=== PATIENT | male | born 1970 | race Caucasian/White ===

== ENCOUNTER 2017-06-11 23:46 | Emergency (ER) | payer OTHER, BC ==
[2017-06-12 00:36] LABS: KETONE, URINE AUTO RFX 1+ mg/dL (NEGATIVE); LEUKOCYTE ESTERASE UR AUTO RFX NEGATIVE (NEGATIVE); MUCUS, URINE RFX SMALL (NEGATIVE); NITRITE, URINE AUTO RFX NEGATIVE (NEGATIVE); RBC, URINE AUTO RFX 2 /HPF (0-3); SPECIFIC GRAVITY UR AUTO RFX 1.026 (1.002-1.035); SQUAM EPITHELIAL CELL UR AURFX 0 /HPF (0-6); WBC, URINE AUTO RFX 1 /HPF (0-3)
[2017-06-12 02:02] LABS: BASO % 0.1 % (0.0-1.0); HEMATOCRIT 43.6 % (42.0-52.0); HEMOGLOBIN 15.3 g/dl (14.0-18.0); IMMATURE GRANULOCYTE % 0.2 % (0-0); LYMPH # 1.4 10^3/uL (1.5-4.5); LYMPH % 12.9 % (24.0-44.0); MEAN CORPUSCULAR HEMOGLOBIN 29.5 pg (27.0-33.0); MEAN CORPUSCULAR HGB CONC 35.1 g/dl (32.0-36.5); MONO # 1.1 10^3/uL (0.0-0.8); MONO % 10.5 % (0.0-5.0); NEUTROPHILS % 76.3 % (36.0-66.0); PLATELET COUNT, AUTOMATED 237 10^3/uL (150-450); RED BLOOD COUNT 5.19 10^6/uL (4.30-6.10); RED CELL DISTRIBUTION WIDTH 12.1 % (11.5-14.5); WHITE BLOOD COUNT 10.4 10^3/uL (4.0-10.0)
[2017-06-12] MEDS: NS 1,000 ML IV (02:05)
[2017-06-12] MEDS: ONDANSETRON 4MG/2ML VIAL (J2405) IV ×2 (02:05→02:08)
[2017-06-12] MEDS ORDERED: ISOVUE-370 76% 100ML VIAL (Q9967) As Ordered (02:06)
[2017-06-12] MEDS: MORPHINE 4 MG/ML 1ML SYRINGE IV (02:22)
[2017-06-12 02:32] LABS: ALBUMIN 3.9 GM/DL (3.2-5.2); ALBUMIN/GLOBULIN RATIO 0.93 (1.00-1.93); ALKALINE PHOSPHATASE 57 U/L (45-117); ALT/SGPT 62 U/L (12-78); ANION GAP 9 MEQ/L (8-16); AST/SGOT 34 U/L (7-37); BILIRUBIN,DIRECT 0.1 MG/DL (0.0-0.2); BILIRUBIN,TOTAL 0.6 MG/DL (0.2-1.0); BLOOD UREA NITROGEN 16 MG/DL (7-18); CARBON DIOXIDE LEVEL 26 MEQ/L (21-32); CHLORIDE LEVEL 103 MEQ/L (98-107); CREATININE FOR GFR 1.12 MG/DL (0.70-1.30); GLOMERULAR FILTRATION RATE > 60.0 (>60); GLUCOSE, FASTING 116 MG/DL (70-105); LIPASE 243 U/L (73-393); POTASSIUM SERUM 3.4 MEQ/L (3.5-5.1); SODIUM LEVEL 138 MEQ/L (136-145); TOTAL PROTEIN 8.1 GM/DL (6.4-8.2)
[2017-06-12] MEDS: KETOROLAC 30 MG/ML VIAL (J1885) IV (04:21)
== END 2017-06-12 04:33 | disposition home or self-care (01) ==
LOC: M ED 23:46
DX: K52.9 Noninfective gastroenteritis and colitis, unspecified (principal); E78.00 Pure hypercholesterolemia, unspecified; K21.9 Gastro-esophageal reflux disease without esophagitis
CPT/HCPCS: J2405

== ENCOUNTER → 2017-07-01 | Outpatient (CLI) | payer OTHER ==
[2017-07-01 18:12] LABS: ALBUMIN 3.9 GM/DL (3.2-5.2); ALBUMIN/GLOBULIN RATIO 1.05 (1.00-1.93); ALKALINE PHOSPHATASE 56 U/L (45-117); ALT/SGPT 56 U/L (12-78); ANION GAP 8 MEQ/L (8-16); AST/SGOT 24 U/L (7-37); BILIRUBIN,TOTAL 0.4 MG/DL (0.2-1.0); BLOOD UREA NITROGEN 12 MG/DL (7-18); CALCIUM LEVEL 8.9 MG/DL (8.5-10.1); CARBON DIOXIDE LEVEL 30 MEQ/L (21-32); CHLORIDE LEVEL 102 MEQ/L (98-107); CHOLESTEROL LEVEL 140 MG/DL (<200); CHOLESTEROL RISK RATIO 2.745 (<5); CREATININE FOR GFR 0.91 MG/DL (0.70-1.30); GLOMERULAR FILTRATION RATE > 60.0 (>60); GLUCOSE, FASTING 83 MG/DL (70-100); HDL CHOLESTEROL 51 MG/DL (>40); LDL CHOLESTEROL 68.2 MG/DL (<100); NON-HDL-C 89 MG/DL; SODIUM LEVEL 140 MEQ/L (136-145); TOTAL PROTEIN 7.6 GM/DL (6.4-8.2); TRIGLYCERIDES LEVEL 104 MG/DL (<150)
[2017-07-01 18:22] LABS: BASO % 0.5 % (0.0-1.0); EOS # 0.1 10^3/uL (0.0-0.50); EOS % 0.8 % (0.0-3.0); HEMATOCRIT 43.6 % (42.0-52.0); HEMOGLOBIN 14.6 g/dl (14.0-18.0); IMMATURE GRANULOCYTE % 0.3 % (0-0); LYMPH # 3.1 10^3/uL (1.5-4.5); LYMPH % 35.5 % (24.0-44.0); MEAN CORPUSCULAR HEMOGLOBIN 28.8 pg (27.0-33.0); MEAN CORPUSCULAR HGB CONC 33.5 g/dl (32.0-36.5); MONO # 0.8 10^3/uL (0.0-0.8); MONO % 9.3 % (0.0-5.0); NEUTROPHILS # 4.7 10^3/uL (1.8-7.7); NEUTROPHILS % 53.6 % (36.0-66.0); PLATELET COUNT, AUTOMATED 279 10^3/uL (150-450); RED BLOOD COUNT 5.07 10^6/uL (4.30-6.10); RED CELL DISTRIBUTION WIDTH 12.3 % (11.5-14.5); WHITE BLOOD COUNT 8.7 10^3/uL (4.0-10.0)
== END ==
LOC: M LAB 16:13
DX: E78.2 Mixed hyperlipidemia (principal); N40.0 Benign prostatic hyperplasia without lower urinary tract symptoms; Z12.5 Encounter for screening for malignant neoplasm of prostate
CPT/HCPCS: 80053

== ENCOUNTER 2018-07-27 15:10 | Emergency (ER) | payer OTHER ==
[~2018-07-27] VITALS: Ht 167.6 cm; Wt 104.5 kg
[~2018-07-27 15:10] MED LIST: ALLE180T33 PO; FISH100049 PO; PAXI30TA11 PO; PREV1CAP PO; RANI1TAB38 PO; SIMV40TA2 PO; VITACAP35 PO; VITATAB22 PO; ZOFR4TAB14 PO
[2018-07-27] MEDS ORDERED: LANS30CA (15:19)
[2018-07-27 15:58] LABS: BASO % 0.5 % (0.0-1.0); EOS # 0.1 10^3/uL (0.0-0.50); EOS % 0.7 % (0.0-3.0); HEMATOCRIT 44.3 % (42.0-52.0); HEMOGLOBIN 15.3 g/dl (13.5-17.5); LYMPH # 2.4 10^3/uL (1.5-4.5); LYMPH % 27.7 % (24.0-44.0); MEAN CORPUSCULAR HEMOGLOBIN 29.8 pg (27.0-33.0); MEAN CORPUSCULAR HGB CONC 34.5 g/dl (32.0-36.5); MEAN CORPUSCULAR VOLUME 86.4 fl (80.0-96.0); MONO # 0.8 10^3/uL (0.0-0.8); MONO % 9.4 % (0.0-5.0); NEUTROPHILS # 5.2 10^3/uL (1.8-7.7); NEUTROPHILS % 61.3 % (36.0-66.0); PLATELET COUNT, AUTOMATED 229 10^3/uL (150-450); RED BLOOD COUNT 5.13 10^6/uL (4.30-6.10); WHITE BLOOD COUNT 8.5 10^3/uL (4.0-10.0)
[2018-07-27 16:17] LABS: ALBUMIN 4.1 GM/DL (3.2-5.2); ALT/SGPT 85 U/L (12-78); BILIRUBIN,TOTAL 0.3 MG/DL (0.2-1.0); BLOOD UREA NITROGEN 13 MG/DL (7-18); CALCIUM LEVEL 8.7 MG/DL (8.5-10.1); CARBON DIOXIDE LEVEL 27 MEQ/L (21-32); CHLORIDE LEVEL 105 MEQ/L (98-107); CREATININE FOR GFR 0.83 MG/DL (0.70-1.30); GLOMERULAR FILTRATION RATE > 60.0 (>60); GLUCOSE, FASTING 89 MG/DL (70-100); POTASSIUM SERUM 3.7 MEQ/L (3.5-5.1); SODIUM LEVEL 141 MEQ/L (136-145)
[2018-07-27 16:25] LABS: HEPATITIS B SURFACE ANTIBODY POSITIVE (POSITIVE)
[2018-07-27 16:36] LABS: HEPATITIS B SURFACE ANTIGEN NEGATIVE (NEGATIVE)
[2018-07-27 17:04] LABS: HEPATITIS C VIRUS ABY INDEX 0.1 INDEX (<0.8)
[2018-07-27] MEDS ORDERED: EXPOSURE KIT-ADULT 7 DAY SUPPLY PO ONE (18:00)
[2018-07-27] MEDS ORDERED: ONDANSETRON 4 MG ORAL DISINTEGRATING TAB (Q0162 PER 1MG) PO ONE (18:00)
[2018-07-27] MEDS ORDERED: ONDA4TAB6 PO (18:00)
[2018-07-27] MEDS ORDERED: ADACEL/BOOSTRIX VACCINE (DIPHTH/PERTUSS/ACELL/TETANUS)0.5ML SYR (90715) IM ONE (18:00)
[2018-07-27 18:10] VITALS: BP 168/90
== END 2018-07-27 18:19 | disposition home or self-care (01) ==
LOC: M ED 15:10
DX: S61.231A Puncture wound without foreign body of left index finger without damage to nail, initial encounter (principal); W46.1XXA Contact with contaminated hypodermic needle, initial encounter; Y92.234 Operating room of hospital as the place of occurrence of the external cause; Y99.0 Civilian activity done for income or pay; K21.9 Gastro-esophageal reflux disease without esophagitis; E78.00 Pure hypercholesterolemia, unspecified; F32.9 Major depressive disorder, single episode, unspecified; Z79.899 Other long term (current) drug therapy
CPT/HCPCS: 36415; 80053; 85025; 86706; 86803; 87340; 87389; 90471; 90715; 99283; Q0162

== ENCOUNTER → 2019-04-19 | Outpatient (CLI) | payer BC, OTHER ==
[~2019-04-19] MED LIST changes: +LANS30CA; +ONDA4TAB6 PO; -SIMV40TA2 PO; +SIMV40TA20 PO
[2019-04-19 10:17] LABS: BASO % 0.4 % (0.0-1.0); EOS # 0.1 10^3/uL (0.0-0.5); EOS % 1.2 % (0.0-3.0); HEMOGLOBIN 15.8 g/dl (13.5-17.5); LYMPH # 2.8 10^3/uL (1.5-5.0); LYMPH % 37.2 % (24.0-44.0); MEAN CORPUSCULAR HEMOGLOBIN 29.3 pg (27.0-33.0); MEAN CORPUSCULAR HGB CONC 33.6 g/dl (32.0-36.5); MEAN CORPUSCULAR VOLUME 87.2 fl (80.0-96.0); MONO # 0.7 10^3/uL (0.0-0.8); MONO % 9.1 % (0.0-5.0); NEUTROPHILS # 3.9 10^3/uL (1.5-8.5); NEUTROPHILS % 51.8 % (36.0-66.0); PLATELET COUNT, AUTOMATED 247 10^3/uL (150-450); RED BLOOD COUNT 5.39 10^6/uL (4.30-6.10); WHITE BLOOD COUNT 7.6 10^3/uL (4.0-10.0)
[2019-04-19 10:53] LABS: ALBUMIN 3.8 GM/DL (3.2-5.2); ALT/SGPT 64 U/L (12-78); BILIRUBIN,TOTAL 0.3 MG/DL (0.2-1.0); BLOOD UREA NITROGEN 18 MG/DL (7-18); CALCIUM LEVEL 8.9 MG/DL (8.5-10.1); CARBON DIOXIDE LEVEL 28 MEQ/L (21-32); CHLORIDE LEVEL 107 MEQ/L (98-107); CHOLESTEROL LEVEL 140 MG/DL (<200); CREATININE FOR GFR 0.91 MG/DL (0.70-1.30); FREE T4 0.92 NG/DL (0.76-1.46); GLOMERULAR FILTRATION RATE > 60.0 (>60); GLUCOSE, FASTING 109 MG/DL (70-100); HDL CHOLESTEROL 40 MG/DL (>40); LDL CHOLESTEROL 87 MG/DL (<100); NON-HDL-C 100 MG/DL; POTASSIUM SERUM 4.2 MEQ/L (3.5-5.1); PROSTATIC SPECIFIC AG MONITOR 0.39 NG/ML (< 4.00); SODIUM LEVEL 141 MEQ/L (136-145); TOTAL PROTEIN 7.6 GM/DL (6.4-8.2); TRIGLYCERIDES LEVEL 67 MG/DL (<150)
== END ==
LOC: M LAB 09:51
PROVIDERS: ATTEND Physician Assistant
DX: E78.2 Mixed hyperlipidemia (principal); K21.0 Gastro-esophageal reflux disease with esophagitis; R53.83 Other fatigue; R35.0 Frequency of micturition

== ENCOUNTER → 2020-12-27 | Outpatient (CLI) | payer OTHER ==
[2020-12-27 10:34] LABS: BASO % 0.4 % (0.0-1.0); EOS # 0.1 10^3/uL (0.0-0.5); EOS % 1.3 % (0.0-3.0); HEMATOCRIT 48.1 % (42.0-52.0); HEMOGLOBIN 15.8 g/dl (13.5-17.5); LYMPH # 2.5 10^3/uL (1.5-5.0); LYMPH % 35.2 % (24.0-44.0); MEAN CORPUSCULAR HEMOGLOBIN 28.9 pg (27.0-33.0); MEAN CORPUSCULAR HGB CONC 32.8 g/dl (32.0-36.5); MEAN CORPUSCULAR VOLUME 88.1 fl (80.0-96.0); MONO # 0.7 10^3/uL (0.0-0.8); MONO % 9.1 % (2.0-8.0); NEUTROPHILS # 3.9 10^3/uL (1.5-8.5); NEUTROPHILS % 53.9 % (36.0-66.0); PLATELET COUNT, AUTOMATED 255 10^3/uL (150-450); RED BLOOD COUNT 5.46 10^6/uL (4.30-6.10); WHITE BLOOD COUNT 7.2 10^3/uL (4.0-10.0)
[2020-12-27 11:06] LABS: ALBUMIN 4.2 GM/DL (3.2-5.2); ALT/SGPT 52 U/L (12-78); BILIRUBIN,TOTAL 0.4 MG/DL (0.2-1.0); BLOOD UREA NITROGEN 12 MG/DL (7-18); CALCIUM LEVEL 9.1 MG/DL (8.5-10.1); CARBON DIOXIDE LEVEL 32 MEQ/L (21-32); CHLORIDE LEVEL 104 MEQ/L (98-107); CHOLESTEROL LEVEL 164 MG/DL (<200); CHOLESTEROL RISK RATIO 3.416 (<5); CREATININE FOR GFR 0.83 MG/DL (0.70-1.30); GLOMERULAR FILTRATION RATE > 60.0 (>60); GLUCOSE, FASTING 98 MG/DL (70-100); HDL CHOLESTEROL 48 MG/DL (>40); LDL CHOLESTEROL 92 MG/DL (<100); NON-HDL-C 116 MG/DL; POTASSIUM SERUM 4.3 MEQ/L (3.5-5.1); PROSTATIC SPECIFIC AG MONITOR 0.41 NG/ML (< 4.00); SODIUM LEVEL 140 MEQ/L (136-145); TOTAL PROTEIN 7.5 GM/DL (6.4-8.2); TRIGLYCERIDES LEVEL 122 MG/DL (<150)
[2020-12-27 11:32] LABS: HEMOGLOBIN A1c 5.3 %
== END ==
LOC: M LAB 08:51
PROVIDERS: ATTEND Physician Assistant
DX: Z00.00 Encounter for general adult medical examination without abnormal findings (principal); E78.2 Mixed hyperlipidemia; K21.9 Gastro-esophageal reflux disease without esophagitis; Z12.5 Encounter for screening for malignant neoplasm of prostate; R73.01 Impaired fasting glucose

== ENCOUNTER → 2021-01-30 | Outpatient (CLI) | payer OTHER ==
--- NOTE | 2021-01-30 15:21 | REP ---
INDICATION: COUGH. COMPARISON: None. FINDINGS: The superior mediastinal structures are midline. The cardiac silhouette is unremarkable in size, shape, and position. The diaphragmatic surfaces of the lungs are regular, and the costophrenic angles are clear. The pulmonary miles are clear. The imaged osseous structures are intact. IMPRESSION: There is no acute cardiopulmonary disease. <Electronically signed by Ibrahima Kapoor > 01/30/21 [id number]
== END ==
LOC: M RAD 13:06
PROVIDERS: ATTEND Physician Assistant
DX: R05 Cough (principal)

== ENCOUNTER → 2021-04-16 | Outpatient (REF) | LOC: M EMP 15:20 | PROVIDERS: ATTEND Family Medicine | DX: Z20.822 Contact with and (suspected) exposure to COVID-19 (principal) ==

== ENCOUNTER → 2021-04-23 | Outpatient (REF) | LOC: M EMP 12:57 | PROVIDERS: ATTEND Family Medicine | DX: Z20.822 Contact with and (suspected) exposure to COVID-19 (principal) ==

== ENCOUNTER → 2022-01-07 | Outpatient (REF) | LOC: M EMP 10:14 | PROVIDERS: ATTEND Family Medicine | DX: Z20.822 Contact with and (suspected) exposure to COVID-19 (principal) ==

== ENCOUNTER 2022-09-11 06:53 | Day surgery (SDC) | payer OTHER ==
[~2022-09-11] VITALS: Ht 167.6 cm; Wt 113.4 kg
[~2022-09-11 06:53] MED LIST changes: +D 1010004 PO; +FAMO20TA5 PO; +LANS30CA93 PO; +NS 1,000 ML IV ONE; +PARO20TA3 PO; -PAXI30TA11 PO; +PAXI30TA12 PO; +VITA500C24 PO
[2022-09-11] MEDS ORDERED: propofoL 200 MG/20 ML VIAL As Ordered ONE ×2 (07:43→08:01)
[2022-09-11] MEDS ORDERED: fentaNYL 100 MCG/2 ML INJECTION As Ordered ONE (07:43)
[2022-09-11] MEDS ORDERED: LIDOCAINE 2% 100MG/5ML SDV (FOR ANES.) As Ordered ONE (07:43)
[2022-09-11 08:30] VITALS: BP 145/81
== END 2022-09-11 08:35 | disposition home or self-care (01) ==
LOC: M OPP 06:53
PROVIDERS: ATTEND Internal Medicine Gastroenterology
DX: Z12.11 Encounter for screening for malignant neoplasm of colon (principal); Z86.010 Personal history of colon polyps; D12.6 Benign neoplasm of colon, unspecified; K64.0 First degree hemorrhoids; K29.70 Gastritis, unspecified, without bleeding; K20.90 Esophagitis, unspecified without bleeding; Z79.02 Long term (current) use of antithrombotics/antiplatelets; Z79.899 Other long term (current) drug therapy
CPT/HCPCS: 43239; 45380; 88305; J3010

== ENCOUNTER 2022-10-27 15:15 | Inpatient (IN) | payer OTHER ==
[~2022-10-27] VITALS: Ht 167.6 cm; Wt 113.6 kg
[~2022-10-27 15:15] MED LIST changes: -NS 1,000 ML IV ONE
[2022-10-27] MEDS ORDERED: MORPHINE 4 MG/ML 1ML VIAL IV PRN ×2 (15:30→21:50)
[2022-10-27] MEDS ORDERED: ONDANSETRON 4MG 2ML VIAL IV ONE (15:30)
[2022-10-27 15:50] LABS: BASO % 0.3 % (0.0-1.0); EOS % 0.4 % (0.0-3.0); HEMATOCRIT 46.2 % (42.0-52.0); HEMOGLOBIN 15.5 g/dl (13.5-17.5); LYMPH # 1.9 10^3/uL (1.5-5.0); LYMPH % 16.3 % (24.0-44.0); MEAN CORPUSCULAR HEMOGLOBIN 29.5 pg (27.0-33.0); MEAN CORPUSCULAR HGB CONC 33.5 g/dl (32.0-36.5); MEAN CORPUSCULAR VOLUME 87.8 fl (80.0-96.0); MONO # 0.7 10^3/uL (0.0-0.8); MONO % 6.5 % (2.0-8.0); NEUTROPHILS # 8.7 10^3/uL (1.5-8.5); NEUTROPHILS % 76.1 % (36.0-66.0); PLATELET COUNT, AUTOMATED 258 10^3/uL (150-450); RED BLOOD COUNT 5.26 10^6/uL (4.30-6.10); WHITE BLOOD COUNT 11.4 10^3/uL (4.0-10.0)
[2022-10-27 16:14] LABS: BLOOD UREA NITROGEN 15 MG/DL (9-23); CALCIUM LEVEL 8.8 MG/DL (8.5-10.1); CARBON DIOXIDE LEVEL 29 MMOL/L (20-31); CHLORIDE LEVEL 106 MMOL/L (98-107); CREATININE FOR GFR 0.82 MG/DL (0.70-1.30); GLOMERULAR FILTRATION RATE > 60.0 (>56); GLUCOSE, FASTING 111 MG/DL (60-100); POTASSIUM SERUM 4.3 MMOL/L (3.5-5.1); SODIUM LEVEL 142 MMOL/L (136-145)
[2022-10-27] MEDS ORDERED: fentaNYL 100 MCG/2 ML INJECTION As Ordered ONE (17:06)
[2022-10-27] MEDS ORDERED: propofoL 200 MG/20 ML VIAL As Ordered ONE (17:07)
[2022-10-27] MEDS ORDERED: LIDOCAINE 2% 100MG/5ML SDV (FOR ANES.) As Ordered ONE (17:07)
[2022-10-27] MEDS ORDERED: ONDANSETRON 4MG 2ML VIAL As Ordered ONE (17:13)
[2022-10-27] MEDS ORDERED: NORCO, ANEXSIA 5/325MG TABLET (HYDROcodone/ACETAMINOPHEN) PO PRN (17:40)
[2022-10-27] MEDS ORDERED: ACETAMINOPHEN 500 MG TAB PO PRN (17:40)
[2022-10-27] MEDS ORDERED: MORPHINE 2 MG/ML 1ML VIAL IV PRN (17:40)
[2022-10-27] MEDS ORDERED: VITMTA PO (18:04)
[2022-10-27] MEDS ORDERED: PARO20TA3 PO (18:04)
[2022-10-27] MEDS ORDERED: HOME MED LIST COMPLETE! XX SCH (18:05)
[2022-10-27] MEDS ORDERED: ONDANSETRON 4MG 2ML VIAL IV PRN (18:15)
[2022-10-27] MEDS ORDERED: fentaNYL 100 MCG/2 ML INJECTION IV PRN (18:15)
[2022-10-27] MEDS ORDERED: LR 1,000 ML IV SCH (18:15)
[2022-10-27] MEDS ORDERED: MIDAZOLAM INJ 2MG/2ML VIAL IV PRN (18:15)
[2022-10-27] MEDS ORDERED: ROPIvacaine 0.5% 30ML VIAL PN ONE (18:15)
[2022-10-27] MEDS ORDERED: MIDAZOLAM INJ 2MG/2ML VIAL As Ordered ONE (18:18)
[2022-10-27] MEDS ORDERED: ceFAZolin 2 GM/D5W 50 ML IV BAG As Ordered ONE (18:37)
[2022-10-27] MEDS ORDERED: HYDROmorphone HCL 2MG/ML 1ML VIAL As Ordered ONE (19:41)
[2022-10-27] MEDS ORDERED: GLYCOPYRROLATE INJ 0.2 MG/ML 2 ML VIAL As Ordered ONE (19:45)
[2022-10-27] MEDS ORDERED: FAMOTIDINE 20 MG TAB PO SCH (21:00)
[2022-10-27] MEDS ORDERED: ASCORBIC ACID 500 MG TAB PO SCH (21:00)
[2022-10-27] MEDS ORDERED: SIMVASTATIN 40 MG TAB PO SCH (21:00)
[2022-10-27] MEDS ORDERED: MULTIVITAMINS/MINERALS THERAP 1 TAB PO SCH (21:00)
[2022-10-27] MEDS ORDERED: PARoxetine 20MG TABLET PO SCH (21:00)
[2022-10-27] MEDS ORDERED: FEXOFENADINE 60MG TAB PO SCH (21:00)
[2022-10-27] MEDS ORDERED: BACITRACIN OINTMENT 30GM TUBE As Ordered ONE (21:14)
[2022-10-27] MEDS ORDERED: oxyCODONE 5MG TAB PO PRN (21:50)
[2022-10-27] MEDS ORDERED: HYDROmorphone 2 MG TAB PO PRN (21:50)
[2022-10-27 22:22] VITALS: BP 143/89
[2022-10-27] MEDS: KETOROLAC 30 MG/ML 1ML VIAL IV SCH (22:39)
[2022-10-27] MEDS ORDERED: PILL CUTTER 1 EACH XX PRN (22:45)
[2022-10-27 23:00] VITALS: BP 138/91
[2022-10-28] VITALS: BP 146/80
[2022-10-28] MEDS ORDERED: ONDANSETRON 4MG 2ML VIAL IV PRN
[2022-10-28 01:00] VITALS: BP 137/70
[2022-10-28 02:00] VITALS: BP 143/71
[2022-10-28 03:00] VITALS: BP 120/68
[2022-10-28] MEDS: ceFAZolin SOD 2 GM in IV 1 EA IV SCH ×2 (03:47→11:35)
[2022-10-28] MEDS: KETOROLAC 30 MG/ML 1ML VIAL IV SCH ×2 (03:58→11:33)
[2022-10-28 06:00] VITALS: BP 119/67
[2022-10-28 10:00] VITALS: BP 122/71
[2022-10-28] MEDS ORDERED: PERC5TAB12 PO (12:24)
[2022-10-28] MEDS ORDERED: ONDA8TAB8 PO (13:17)
[2022-10-28] MEDS ORDERED: IBUPROFEN 600MG TAB PO PRN (23:00)
== END 2022-10-28 14:45 | disposition home or self-care (01) | DRG 313 ==
LOC: EDBD 15:15 → M ED 15:15 → M ED INP 17:40 → M MS5PR 22:20
PROVIDERS: ADMIT Family Medicine; ATTEND Family Medicine
PROC: 0QSG06Z Reposition Right Tibia with Intramedullary Internal Fixation Device, Open Approach (ICD-10-PCS; 2022-10-27)
PROC: 2W3QX3Z Immobilization of Right Lower Leg using Brace (ICD-10-PCS; 2022-10-27)
PROC: BQ1DZZZ Fluoroscopy of Right Lower Leg (ICD-10-PCS; principal; 2022-10-27 18:30)
DX: S82.251A Displaced comminuted fracture of shaft of right tibia, initial encounter for closed fracture (principal); E78.5 Hyperlipidemia, unspecified; K21.00 Gastro-esophageal reflux disease with esophagitis, without bleeding; Z83.3 Family history of diabetes mellitus; W11.XXXA Fall on and from ladder, initial encounter; Y92.009 Unspecified place in unspecified non-institutional (private) residence as the place of occurrence of the external cause

== ENCOUNTER → 2022-11-05 | Outpatient (CLI) | payer OTHER ==
[~2022-11-05] MED LIST changes: +ONDA8TAB8 PO; +PERC5TAB12 PO; +VITMTA PO
== END ==
LOC: M SOG 10:05
PROVIDERS: ATTEND Orthopaedic Surgery Hand Surgery
DX: Z47.89 Encounter for other orthopedic aftercare (principal); M79.89 Other specified soft tissue disorders; M25.461 Effusion, right knee; M17.11 Unilateral primary osteoarthritis, right knee; S82.201D Unspecified fracture of shaft of right tibia, subsequent encounter for closed fracture with routine healing

== ENCOUNTER → 2022-11-29 | Outpatient (CLI) | payer OTHER | LOC: M SOG 09:45 | PROVIDERS: ATTEND Physician Assistant | DX: S82.251D Displaced comminuted fracture of shaft of right tibia, subsequent encounter for closed fracture with routine healing (principal) ==

== ENCOUNTER → 2022-12-19 | Outpatient (CLI) | payer OTHER | LOC: M SOG 08:55 | PROVIDERS: ATTEND Physician Assistant | DX: S82.251D Displaced comminuted fracture of shaft of right tibia, subsequent encounter for closed fracture with routine healing (principal) ==

== ENCOUNTER → 2023-01-17 | Outpatient (CLI) | payer OTHER | LOC: M PLALAB 15:47 | PROVIDERS: ATTEND Orthopaedic Surgery Hand Surgery | DX: S82.251D Displaced comminuted fracture of shaft of right tibia, subsequent encounter for closed fracture with routine healing (principal); M25.571 Pain in right ankle and joints of right foot; M85.871 Other specified disorders of bone density and structure, right ankle and foot ==

== ENCOUNTER → 2023-02-26 | Outpatient (CLI) | payer OTHER | LOC: M RAD 07:05 | PROVIDERS: ATTEND Orthopaedic Surgery Hand Surgery | DX: M25.561 Pain in right knee (principal); S83.281A Other tear of lateral meniscus, current injury, right knee, initial encounter; X58.XXXA Exposure to other specified factors, initial encounter; Y92.9 Unspecified place or not applicable; Y93.9 Activity, unspecified; Y99.9 Unspecified external cause status; Z87.81 Personal history of (healed) traumatic fracture ==

== ENCOUNTER → 2023-03-25 | Outpatient (CLI) | payer OTHER | LOC: M SOG 15:41 | PROVIDERS: ATTEND Orthopaedic Surgery Hand Surgery | DX: S82.251D Displaced comminuted fracture of shaft of right tibia, subsequent encounter for closed fracture with routine healing (principal); M17.11 Unilateral primary osteoarthritis, right knee ==

== ENCOUNTER 2023-04-23 08:30 | Outpatient (RCR) | payer OTHER | END 2023-04-24 | LOC: M PT 08:30 | PROVIDERS: ATTEND Orthopaedic Surgery Hand Surgery | DX: S82.251D Displaced comminuted fracture of shaft of right tibia, subsequent encounter for closed fracture with routine healing (principal); W18.30XD Fall on same level, unspecified, subsequent encounter ==

== ENCOUNTER → 2023-05-13 | Outpatient (CLI) | payer OTHER | LOC: M SOG 08:19 | PROVIDERS: ATTEND Orthopaedic Surgery Hand Surgery | DX: S82.251D Displaced comminuted fracture of shaft of right tibia, subsequent encounter for closed fracture with routine healing (principal) ==

== ENCOUNTER → 2024-02-26 | Outpatient (CLI) | payer OTHER ==
[~2024-02-26] MED LIST changes: +ONDA-282 PO; +ONDA-284 PO; -ONDA4TAB6 PO; -ONDA8TAB8 PO
== END ==
LOC: M SOG 13:28
PROVIDERS: ATTEND Orthopaedic Surgery
DX: M25.561 Pain in right knee (principal); M79.604 Pain in right leg

== ENCOUNTER 2024-05-05 06:27 | Day surgery (SDC) | payer OTHER ==
[~2024-05-05] VITALS: Ht 167.6 cm; Wt 113.4 kg
[~2024-05-05 06:27] MED LIST changes: +LANS30CA PO; +THERTAB52 PO
[2024-05-05] MEDS ORDERED: MIDAZOLAM INJ 2MG/2ML VIAL As Ordered ONE (06:53)
[2024-05-05] MEDS ORDERED: fentaNYL 100 MCG/2 ML INJECTION As Ordered ONE (06:54)
[2024-05-05] MEDS ORDERED: ACETAMINOPHEN 1000MG/100ML IV BAG As Ordered ONE (06:54)
[2024-05-05] MEDS ORDERED: LIDOCAINE 1% SDV 5ML VIAL SC PRN (06:55)
[2024-05-05] MEDS ORDERED: NS 1,000 ML IV SCH (06:55)
[2024-05-05] MEDS ORDERED: LIDOCAINE 2% 100MG/5ML SDV (FOR ANES.) As Ordered ONE (06:58)
[2024-05-05] MEDS ORDERED: propofoL 200 MG/20 ML VIAL As Ordered ONE (06:58)
[2024-05-05] MEDS ORDERED: ONDANSETRON 4MG 2ML VIAL As Ordered ONE (06:59)
[2024-05-05] MEDS ORDERED: KETOROLAC 60MG 2ML VIAL As Ordered ONE (07:03)
[2024-05-05] MEDS ORDERED: dexmedeTOMIDine (4MCG/ML)200MCG/50ML BTL (PRECEDEX) As Ordered ONE (07:49)
[2024-05-05] MEDS: ceFAZolin 2 GM/D5W 50 ML IV BAG As Ordered ONE (08:08)
[2024-05-05] MEDS: LIDOCAINE W/EPINEPHRINE 1% 20ML VIAL As Ordered ONE (08:30)
[2024-05-05] MEDS: BACITRACIN OINTMENT 30GM TUBE As Ordered ONE (09:10)
[2024-05-05] MEDS ORDERED: PERCOCET PO (09:23)
[2024-05-05 09:39] VITALS: BP 143/80; TEMP 98.1; O2SAT 97
== END 2024-05-05 10:00 | disposition home or self-care (01) ==
LOC: M SDC 06:27
PROVIDERS: ATTEND Orthopaedic Surgery Hand Surgery
DX: T84.84XA Pain due to internal orthopedic prosthetic devices, implants and grafts, initial encounter (principal); Y79.2 Prosthetic and other implants, materials and accessory orthopedic devices associated with adverse incidents; E78.00 Pure hypercholesterolemia, unspecified; K21.9 Gastro-esophageal reflux disease without esophagitis; Z79.899 Other long term (current) drug therapy; Z88.5 Allergy status to narcotic agent
CPT/HCPCS: 20680; 76000; 93005; J0131; J0690; J1100; J1885; J2250; J2405; J3010

== ENCOUNTER → 2024-07-02 | Outpatient (REF) | payer OTHER ==
[~2024-07-02] MED LIST changes: +PERCOCET PO
[2024-07-02 16:49] LABS: APPEARANCE, URINE HAZY (CLEAR); BACTERIA, URINE AUTO NEGATIVE (NEGATIVE); BILIRUBIN, URINE AUTO NEGATIVE (NEGATIVE); BLOOD, URINE BLOOD NEGATIVE (NEGATIVE); COLOR, URINE YELLOW (YELLOW); GLUCOSE, URINE (UA) AUTO NEGATIVE (NEGATIVE); KETONE, URINE AUTO NEGATIVE (NEGATIVE); LEUKOCYTE ESTERASE, URINE AUTO NEGATIVE (NEGATIVE); MUCUS, URINE SMALL (NEGATIVE); NITRITE, URINE AUTO NEGATIVE (NEGATIVE); PROTEIN, URINE AUTO NEGATIVE (NEGATIVE); RBC, URINE AUTO 1 /HPF (0-3); SPECIFIC GRAVITY URINE AUTO 1.024 (1.002-1.035); SQUAMOUS EPITHELIAL CELL UR AU 0 /HPF (0-6); UROBILINOGEN, URINE AUTO 0.2 mg/dL (0.0-2.0); WBC, URINE AUTO 2 /HPF (0-3)
== END ==
LOC: M LAB REF 16:11
PROVIDERS: ATTEND Physician Assistant
DX: N39.0 Urinary tract infection, site not specified (principal)

== ENCOUNTER → 2024-07-26 | Outpatient (CLI) | payer OTHER | LOC: M RAD 11:51 | DX: R31.9 Hematuria, unspecified (principal); K42.9 Umbilical hernia without obstruction or gangrene ==

== ENCOUNTER → 2024-08-17 | Outpatient (REF) | payer OTHER ==
[2024-08-17 14:06] LABS: APPEARANCE, URINE CLEAR (CLEAR); BACTERIA, URINE AUTO NEGATIVE (NEGATIVE); BILIRUBIN, URINE AUTO NEGATIVE (NEGATIVE); BLOOD, URINE BLOOD 1+ (NEGATIVE); COLOR, URINE YELLOW (YELLOW); GLUCOSE, URINE (UA) AUTO NEGATIVE (NEGATIVE); KETONE, URINE AUTO NEGATIVE (NEGATIVE); LEUKOCYTE ESTERASE, URINE AUTO NEGATIVE (NEGATIVE); MUCUS, URINE SMALL (NEGATIVE); NITRITE, URINE AUTO NEGATIVE (NEGATIVE); PROTEIN, URINE AUTO NEGATIVE (NEGATIVE); RBC, URINE AUTO 8 /HPF (0-3); SPECIFIC GRAVITY URINE AUTO 1.018 (1.002-1.035); SQUAMOUS EPITHELIAL CELL UR AU 0 /HPF (0-6); UROBILINOGEN, URINE AUTO 0.2 mg/dL (0.0-2.0); WBC, URINE AUTO 1 /HPF (0-3)
== END ==
LOC: M SMT 12:36
PROVIDERS: ATTEND Urology
DX: N20.1 Calculus of ureter (principal)

== ENCOUNTER 2024-08-25 15:27 | Day surgery (SDC) | payer OTHER ==
[~2024-08-25 15:27] MED LIST changes: +ACETAMINOPHEN 1000MG/100ML IV BAG As Ordered ONE; +LIDOCAINE 2% 100MG/5ML SDV (FOR ANES.) As Ordered ONE; +MIDAZOLAM INJ 2MG/2ML VIAL As Ordered ONE; +ONDANSETRON 4MG 2ML VIAL As Ordered ONE; +ROCURONIUM BROMIDE 50MG/5ML VIAL As Ordered ONE; +fentaNYL 100 MCG/2 ML INJECTION As Ordered ONE; +propofoL 200 MG/20 ML VIAL As Ordered ONE
[2024-08-25] MEDS: ceFAZolin SODIUM 2 GM VIAL As Ordered ONE (15:50)
[2024-08-25] MEDS: LIDOCAINE 2% 5ML JELLY UROJET As Ordered ONE (15:59)
[2024-08-25] MEDS ORDERED: PHENYLephrine 500MCG 5ML (100MCG/ML) SYRINGE As Ordered ONE (16:22)
[2024-08-25] MEDS ORDERED: ePHEDrine SULFATE 25 MG/5 ML(5MG/ML) SYRINGE As Ordered ONE (16:23)
[2024-08-25] MEDS: ISOVUE-300 61% 100ML VIAL As Ordered ONE (16:28)
[2024-08-25] MEDS ORDERED: oxyCODONE 5MG TAB PO PRN (16:50)
[2024-08-25] MEDS ORDERED: ONDANSETRON 4MG 2ML VIAL IV PRN (16:50)
[2024-08-25] MEDS ORDERED: LR 1,000 ML IV SCH (16:50)
[2024-08-25] MEDS ORDERED: HYDROMORPHONE HCL 0.5 MG/ 0.5 ML SYRINGE IV PRN (16:50)
[2024-08-25] MEDS ORDERED: fentaNYL 100 MCG/2 ML INJECTION IV PRN (16:50)
[2024-08-25] MEDS ORDERED: KETO10TAB PO (16:58)
[2024-08-25] MEDS ORDERED: OXYB5TAB14 PO (16:58)
[2024-08-25 17:45] VITALS: BP 162/74; TEMP 97.5; O2SAT 95
== END 2024-08-25 18:15 | disposition home or self-care (01) ==
LOC: M SDC 15:27
PROVIDERS: ATTEND Urology
DX: N13.2 Hydronephrosis with renal and ureteral calculous obstruction (principal); E78.5 Hyperlipidemia, unspecified; E66.9 Obesity, unspecified; K21.9 Gastro-esophageal reflux disease without esophagitis; Z79.899 Other long term (current) drug therapy
CPT/HCPCS: 52356; 74420; 82365; C1769; C2617; J0131; J0690; J1100; J2250; J2371; J2405; J3010; Q9967

== ENCOUNTER → 2025-01-19 | Outpatient (REF) | payer OTHER ==
[~2025-01-19] MED LIST changes: -ACETAMINOPHEN 1000MG/100ML IV BAG As Ordered ONE; +KETO10TAB PO; -LIDOCAINE 2% 100MG/5ML SDV (FOR ANES.) As Ordered ONE; -MIDAZOLAM INJ 2MG/2ML VIAL As Ordered ONE; -ONDANSETRON 4MG 2ML VIAL As Ordered ONE; +OXYB5TAB14 PO; -ROCURONIUM BROMIDE 50MG/5ML VIAL As Ordered ONE; -fentaNYL 100 MCG/2 ML INJECTION As Ordered ONE; -propofoL 200 MG/20 ML VIAL As Ordered ONE
== END ==
LOC: M SFHCADAM 10:52
PROVIDERS: ATTEND Nurse Practitioner Family
DX: L72.0 Epidermal cyst (principal)

== ENCOUNTER → 2025-04-06 | Outpatient (CLI) | payer OTHER | LOC: M RAD 13:37 | PROVIDERS: ATTEND Urology | DX: N20.0 Calculus of kidney (principal) ==

== ENCOUNTER → 2025-04-28 | Outpatient (RCR) | LOC: EDBD → M EMP 04-03 08:15 | PROVIDERS: ATTEND Family Medicine | DX: Z20.828 Contact with and (suspected) exposure to other viral communicable diseases (principal) ==